=== PATIENT | female | born 1975 | race Asian ===

== ENCOUNTER 2018-06-22 09:59 | Day surgery (SDC) | payer BC ==
[~2018-06-22 09:59] MED LIST: CEFAZOLIN 1 GM INJ; EPHEDrine SULFATE 50 MG/5 ML SYG; LIDOCAINE 2% (SDV) 5 ML INJ
[2018-06-22] MEDS: LACTATED RINGER'S 1,000 ML IV* (10:45)
[2018-06-22] MEDS ORDERED: LABETALOL HCL 20MG INJ IV ×2 (11:30→13:00)
[2018-06-22] MEDS: hydrALAzine 20 MG INJ IV ×2 (11:35→12:06)
[2018-06-22] MEDS ORDERED: PROPOFOL 40 ML (12:33)
[2018-06-22] MEDS ORDERED: MIDAZOLAM 1 MG/ML 2 ML INJ (12:33)
[2018-06-22] MEDS ORDERED: FENTAnyl 50 MCG/ML VIAL (12:33)
[2018-06-22] MEDS ORDERED: DEXAMETHASONE 4 MG/ML 1 ML INJ (12:34)
[2018-06-22] MEDS ORDERED: ONDANSETRON 4 MG INJ (12:34)
[2018-06-22] MEDS ORDERED: FAMOTIDINE 20 MG INJ (12:34)
[2018-06-22] MEDS ORDERED: OXYCODONE/ACETAMINOPHEN (5/325) TAB PO ×2 (13:00)
[2018-06-22] MEDS ORDERED: HYDROmorphONE 1 MG/5 ML IV SYRINGE IV ×2 (13:00)
[2018-06-22] MEDS ORDERED: FENTAnyl 50 MCG/ML VIAL IV ×2 (13:00)
[2018-06-22] MEDS ORDERED: morphine (1 MG/ML) 10ML SYRINGE IV ×2 (13:00)
[2018-06-22] MEDS ORDERED: ONDANSETRON 4 MG INJ IV (13:00)
[2018-06-22] MEDS ORDERED: ALBUTEROL 0.083% (NEB) 2.5 MG/3 ML AMP HHN (13:00)
[2018-06-22] MEDS ORDERED: MEPERIDINE 25 MG INJ IV (13:00)
[2018-06-22] MEDS ORDERED: DIPHENHYDRAMINE 50 MG INJ IV (13:00)
[2018-06-22] MEDS ORDERED: KETOROLAC 30 MG INJ (13:16)
[2018-06-22] MEDS ORDERED: PHENYLephrine (100 MCG/ML) 5ML SYG (13:16)
== END 2018-06-22 15:20 | disposition home or self-care (01) ==
LOC: SDS 09:59
DX: N92.0 Excessive and frequent menstruation with regular cycle (principal); N84.0 Polyp of corpus uteri; I10 Essential (primary) hypertension
CPT/HCPCS: 58558; 84703; 88305